=== PATIENT | female | born 1985 | race Caucasian/White ===

== ENCOUNTER 2017-06-07 07:25 | Inpatient (IN) | payer BC ==
[2017-06-07] MEDS ORDERED: Dinoprostone* 10 MG VAG.SUPP VAGINAL ONE ×2 (08:46→21:42)
[2017-06-07 12:00] LABS: Hematocrit 38 % (35-47); Hemoglobin 12.4 g/dl (12.0-16.0); Mean Corpuscular HGB Conc 32 g/dl (31-36); Mean Corpuscular Hemoglobin 27 pg (27-31); Mean Corpuscular Volume 82 fL (80-97); Mean Platelet Volume 10 um3 (7.4-10.4); Red Blood Count 4.65 10^6/ul (4.0-5.4); Red Cell Distribution Width 15 % (10.5-15)
[2017-06-07 12:16] LABS: Albumin 3.3 g/dL (3.2-5.2); BUN/Creatinine Ratio 20.5 (8-20); Calcium 9.1 mg/dL (8.6-10.3); EGFR African American 215.9 (>60); EGFR Non-African American 167.9 (>60); Globulin 3.5 g/dL (2-4); Potassium 3.8 mmol/L (3.5-5.0); Total Bilirubin 0.4 mg/dL (0.2-1.0); Total Protein 6.8 g/dL (6.4-8.9); Uric Acid 3.3 mg/dL (2.3-6.6)
--- NOTE | 2017-06-07 18:21 | PTEDU ---
Patient Name: REBECCA ACRTER REBECCA CARTER selected video: Never Ever Shake a Baby to view on 06/07/2017 at 6:20:48 PM from [facility] [id number]
[2017-06-07] MEDS ORDERED: Nalbuphine* 20 MG/ML 1 ML VIAL IV PRN (21:53)
[2017-06-07] MEDS ORDERED: Promethazine INJ(RESTRICTED)* 25 MG/ML 1 ML VIAL IV PRN (21:55)
[2017-06-08] MEDS ORDERED: Oxytocin in LR* 20 UNITS/1,000 ML BAG IVPB SCH (13:00)
[2017-06-08] MEDS: Misoprostol TAB* 100 MCG PO ONE (20:56)
[2017-06-09] MEDS ORDERED: hydrOXYzine HCL TAB* 50 MG PO ONE (01:05)
[2017-06-09] MEDS ORDERED: Misoprostol TAB* 100 MCG PO ONE (01:05)
[2017-06-09] MEDS ORDERED: Misoprostol TAB* 100 MCG ONE (01:10)
[2017-06-09] MEDS: Misoprostol TAB* 100 MCG PO ONE (01:24)
[2017-06-09 11:26] LABS: Hematocrit 41 % (35-47); Hemoglobin 13.2 g/dl (12.0-16.0); Mean Corpuscular HGB Conc 33 g/dl (31-36); Mean Corpuscular Hemoglobin 28 pg (27-31); Mean Corpuscular Volume 85 fL (80-97); Mean Platelet Volume 11 um3 (7.4-10.4); Red Blood Count 4.79 10^6/ul (4.0-5.4); Red Cell Distribution Width 15 % (10.5-15); White Blood Count 19.6 10^3/ul (3.5-10.8)
[2017-06-09] MEDS ORDERED: ceFOXitin 2 GM IVPREMIX* 2 GM/50 ML BAG IVPB ONE (16:37)
[2017-06-09] MEDS ORDERED: Dibucaine 1% 28.35 GM TUBE PR PRN (16:38)
[2017-06-09] MEDS ORDERED: oxyCODONE/Acetamin 5/325 MG* TAB PO PRN ×2 (16:38→19:08)
[2017-06-09] MEDS ORDERED: Witch Hazel PAD* JAR TOPICAL PRN (16:38)
[2017-06-09] MEDS ORDERED: RHO D Immune Globulin (HUMAN)* 300 MCG = 1,500 I.U. INJ IM ONE (16:44)
[2017-06-09] MEDS ORDERED: Sodium Citrate/Citric Acid* 15 ML UDC ONE (16:53)
[2017-06-09] MEDS ORDERED: Morphine PF AMP (0.5MG/ML)* 5 MG/10 ML AMP ONE (17:35)
[2017-06-09] MEDS ORDERED: OXYTOCIN* 10 UNITS/ML 1 ML VIAL ONE ×2 (17:52→18:17)
[2017-06-09] MEDS ORDERED: Ondansetron INJ* 2 MG/ML VIAL ONE (18:25)
[2017-06-09] MEDS ORDERED: Phenylephrine IV* 40 MCG/ML 10 ML SYRINGE ONE (18:25)
[2017-06-09] MEDS ORDERED: PROCHLORPERAZINE INJ 5 MG/ML 2 ML VIAL IV PRN (19:08)
[2017-06-09] MEDS ORDERED: Ondansetron INJ* 2 MG/ML VIAL IV PRN (19:08)
[2017-06-09] MEDS ORDERED: HYDROmorphone* 1 MG/ML 1 ML SYR IV PRN (19:08)
[2017-06-09] MEDS ORDERED: Naloxone* 0.4 MG/ML 1 ML VIAL IV PRN (19:08)
[2017-06-09] MEDS ORDERED: DiMENhydriNATE IV* 50 MG/ML VIAL IV PUSH PRN (19:08)
[2017-06-09] MEDS: Ketorolac INJ* 30 MG/ML 1 ML VIAL IV PRN (21:44)
[2017-06-09] MEDS: Ibuprofen TAB* 600 MG PO SCH ×2 (21:45→23:40)
[2017-06-09] MEDS: Simethicone CHEW TAB* 80 MG PO SCH (21:46)
[2017-06-09] MEDS: Docusate CAP* 100 MG PO SCH (21:46)
[2017-06-10] MEDS: Ketorolac INJ* 30 MG/ML 1 ML VIAL IV PRN ×3 (03:00→14:55)
[2017-06-10 08:36] LABS: Hematocrit 33 % (35-47); Mean Corpuscular HGB Conc 34 g/dl (31-36); Mean Corpuscular Hemoglobin 28 pg (27-31); Mean Corpuscular Volume 83 fL (80-97); Mean Platelet Volume 11 um3 (7.4-10.4); Red Blood Count 3.95 10^6/ul (4.0-5.4); Red Cell Distribution Width 15 % (10.5-15); White Blood Count 22.2 10^3/ul (3.5-10.8)
--- NOTE | 2017-06-10 08:40 | OP ---
DATE OF OPERATION: 06/09/17 - ROOM #[id number]-103 DATE OF : 89 SURGEON: Lukas Castle MD LINING BASTER: Farheen Mederos CNM ANESTHESIOLOGIST: Dr. Montgomery ANESTHESIA: Spinal. PRE-OP DIAGNOSIS: 39 plus 5 weeks' gestation with gestational hypertension and failure of induction. POST-OP DIAGNOSIS: 39 plus 5 weeks' gestation with gestational hypertension and failure of induction. OPERATIVE PROCEDURE: Primary low transverse section with vacuum assist. ESTIMATED BLOOD LOSS: 900 cc. URINE OUTPUT: 200 cc. IV FLUIDS: 1900 cc lactated Ringer's. MATERIALS TO LAB: Cord blood. INDICATIONS: This patient is a 32-year-old 1, para 0, who is admitted at 39 plus 3 weeks' gestation for induction of labor due to her history of gestational hypertension, possibly chronic hypertension. The patient did not have evidence of preeclampsia. Her cervix was not favorable on admission. She received two doses of intravaginal Cervidil. On hospital day 2, she received Pitocin for several hours without significant change and then received two doses of oral misoprostol. On hospital day 3, the patient had had minimal change in the last 24 hours. Artificial rupture of membranes was performed and Pitocin was restarted. Despite regular, uncomfortable uterine contractions for several hours, the patient did not progress progress past 2 cm dilatation and the head remained high in the pelvis. Considering this, we discussed the options and she desired to proceed with a primary section for failure of induction at that time. She was extensively counseled and consent was signed. FINDINGS: Lower abdomen and pelvis were very tight and narrow. Delivery of the head was quite challenging because of this. Delivery was productive of a male infant, weighing 8 pounds 4 ounces, and Apgars were 9 and 9. Time of delivery was 1815. COMPLICATIONS: None. DESCRIPTION OF PROCEDURE: The risks, benefits, and alternatives were described to the patient and informed consent was obtained. The patient was taken to the operating room with IV running where spinal anesthesia was induced and found to be adequate. The patient was prepped and draped in the normal sterile fashion in the dorsal supine position with leftward tilt. A Pfannenstiel skin incision was made with a scalpel and this was carried down to the underlying fascia sharply. The fascia was then scored in the midline with the scalpel. The incision was extended using Mejia scissors. The rectus muscles were dissected off the rectus fascia using blunt and sharp dissection. The rectus muscles were in the midline bluntly. The peritoneum was also entered bluntly. A bladder blade was placed. A bladder flap was created sharply using Metzenbaum scissors. A low transverse uterine incision was made with the scalpel. This was carried down to the amniotic cavity which was productive of clear fluid. The incision was extended with blunt traction. The head was elevated to the level of the incision without difficulty and delivered through the incision. With fundal pressure, the shoulders and body delivered without difficulty. The had an excellent tone and cried immediately on delivery. The cord was doubly clamped and cut. The was then handed to the awaiting combination saw operator. Cord blood was collected. The placenta then delivered with manual extraction. The uterus was then exteriorized and cleared of all clots and debris. Uterine incision was reapproximated using 0 Polysorb in a running-locked fashion. A second layer of imbricating sutures of 0 Polysorb was also placed with good hemostasis. The posterior cul-de-sac was irrigated with saline. The uterus was then returned to the abdomen, and the incision was reinspected and noted to be hemostatic. The peritoneum was closed with 2-0 chromic in a running fashion. The fascia was closed with 0 Polysorb in a running fashion. Subcutaneous tissues were reapproximated using 2-0 chromic and interrupted sutures. The skin was then closed with 4-0 Monocryl in a subcuticular stitch. Mastisol and Steri-Strips were placed over the incision which was then covered with a sterile bandage. The patient tolerated the procedure well. Sponge, lap, and needle counts were correct x2. [id number]/[facility] #: [id number] [facility]
[2017-06-10] MEDS ORDERED: Ferrous Gluconate TAB* 324 MG TAB PO SCH (09:00)
[2017-06-10] MEDS: Docusate CAP* 100 MG PO SCH ×3 (09:11→20:36)
[2017-06-10] MEDS: Simethicone CHEW TAB* 80 MG PO SCH ×4 (09:11→20:36)
[2017-06-10] MEDS: Ibuprofen TAB* 600 MG PO SCH ×3 (09:52→20:35)
[2017-06-11] MEDS: Ibuprofen TAB* 600 MG PO SCH (02:52)
[2017-06-11] MEDS: oxyCODONE/Acetamin 5/325 MG* TAB PO PRN ×2 (02:54→12:07)
[2017-06-11] MEDS: Docusate CAP* 100 MG PO SCH (08:43)
[2017-06-11] MEDS: Simethicone CHEW TAB* 80 MG PO SCH ×2 (08:44→12:06)
[2017-06-11] MEDS ORDERED: Ibuprofen TAB* 600 MG PO SCH (09:00)
[2017-06-11 10:07] VITALS: BP 140/72
== END 2017-06-11 12:20 | disposition home or self-care (01) | DRG 540 ==
LOC: MCHOBOUT 07:25 → MCHOB 09:17
PROVIDERS: ADMIT Obstetrics & Gynecology; ATTEND Obstetrics & Gynecology
PROC: 3E033VJ Introduction of Other Hormone into Peripheral Vein, Percutaneous Approach (ICD-10-PCS; 2017-06-09)
PROC: 10907ZC Drainage of Amniotic Fluid, Therapeutic from Products of Conception, Via Natural or Artificial Opening (ICD-10-PCS; 2017-06-09)
PROC: 10D00Z1 Extraction of Products of Conception, Low, Open Approach (ICD-10-PCS; principal; 2017-06-09 17:39)
DX: O62.0 Primary inadequate contractions (principal); Z37.0 Single live birth; O13.4 Gestational [pregnancy-induced] hypertension without significant proteinuria, complicating childbirth; Z3A.39 39 weeks gestation of pregnancy
CPT/HCPCS: 36415; 59200; 80053; 84550; 85025; 85461; 86850; 86900; 86901; A9270-GY; J0694; J1885; J2300; J2405; J2550; J2590; J2790; S0191

== ENCOUNTER 2021-03-05 06:03 | Inpatient (IN) ==
[~2021-03-05 06:03] MED LIST: Buffered Lidocaine 1% SYRIN 1 ml INTRADERM ONE; Lactated Ringers 1000 ml BAG 1,000 ML IV SCH; Sodium Citrate/Citric Acid LIQ 15 ML UDC PO ONE
[2021-03-05] MEDS ORDERED: ceFOXitin 2 GM PREMIX 50 ML IVPB ONE (06:08)
[2021-03-05] MEDS ORDERED: Buffered Lidocaine 1% SYRIN 1 ml INTRADERM ONE (07:18)
[2021-03-05] MEDS ORDERED: Lactated Ringers 1000 ml BAG 1,000 ML IV ONE (07:18)
[2021-03-05] MEDS ORDERED: Morphine PF AMP (0.5MG/ML) 5 MG/10 ML AMP ONE (07:41)
[2021-03-05] MEDS ORDERED: Phenylephrine 40 mcg/mL 10mL (400mcg) SYRINGE ONE (07:42)
[2021-03-05] MEDS ORDERED: Naloxone 0.4 mg VIAL 0.4 mg/ml 1 ml VIAL IV PRN ×2 (07:43→07:44)
[2021-03-05] MEDS ORDERED: diPHENhydraMINE IV 50 MG/ML 1 ml VIAL (BENADRYL) IV PRN (07:44)
[2021-03-05] MEDS ORDERED: oxyCODONE/Acetamin 5/325 mg TAB PO PRN ×2 (07:44→07:46)
[2021-03-05] MEDS ORDERED: Ondansetron 4 mg VIAL 2 MG/ML 2 ml VIAL IV PRN (07:44)
[2021-03-05] MEDS ORDERED: Lactated Ringers 1000 ml BAG 1,000 ML IV SCH ×2 (08:00→10:00)
[2021-03-05] MEDS ORDERED: Ondansetron 4 mg VIAL 2 MG/ML 2 ml VIAL ONE (08:12)
[2021-03-05] MEDS ORDERED: Oxytocin 10 UNITS/ML 1 ML VIAL ONE (08:12)
[2021-03-05] MEDS ORDERED: Glycerin ADULT 2.4 gm SUPP PR PRN (09:30)
[2021-03-05] MEDS ORDERED: RHO D Immune Globulin (HUMAN) 300 MCG = 1,500 I.U. INJ IM PRN (09:30)
[2021-03-05] MEDS ORDERED: Witch Hazel PAD JAR TOPICAL PRN (09:30)
[2021-03-05] MEDS ORDERED: Dibucaine 1% OINT 28.35 GM TUBE PR PRN (09:30)
[2021-03-05 09:58] LABS: Urine Benzodiazepine Screen None Detected (None Detect); Urine Cannabinoids Screen None Detected (None Detect); Urine Opiates Screen None Detected (None Detect)
[2021-03-05] MEDS ORDERED: Oxytocin in LR 20 UNITS/1,000 ML BAG IVPB SCH (10:00)
[2021-03-05] MEDS ORDERED: Measles, Mumps,Rubella VACC 0.5 ML/VIAL SUBCUT ONE (10:34)
[2021-03-06 08:17] LABS: Urine Appearance Clear; Urine Bilirubin Negative (Negative); Urine Blood Negative (Negative); Urine Color Yellow; Urine Glucose Negative (Negative); Urine Ketones Negative (Negative); Urine Nitrite Negative (Negative); Urine Protein Negative (Negative); Urine Urobilinogen Negative (Negative)
[2021-03-06 09:56] LABS: ABS Eosinophils 0.1 10^3/ul (0-0.6); ABS Lymphocytes 1.3 10^3/ul (1.0-4.8); ABS Monocytes 0.8 10^3/ul (0-0.8); ABS Neutrophils 16.1 10^3/ul (1.5-7.7); Eosinophil % 0.5 %; Hematocrit 31 % (35-47); Hemoglobin 10.6 g/dL (12.0-16.0); Lymphocyte % 6.9 %; Mean Corpuscular HGB Conc 34 g/dL (31-36); Mean Corpuscular Hemoglobin 29 pg (27-31); Mean Corpuscular Volume 84 fL (80-97); Mean Platelet Volume 9.8 fL (7.4-10.4); Platelet Count 174 10^3/uL (150-450); Red Blood Count 3.71 10^6 /uL (3.70-4.87); Red Cell Distribution Width 14 % (10-15); White Blood Count 18.2 10^3/uL (3.5-10.8)
[2021-03-06] MEDS ORDERED: Measles, Mumps,Rubella VACC 0.5 ML/VIAL ONE (12:38)
[2021-03-07 07:56] VITALS: BP 124/80
== END 2021-03-07 09:55 | disposition home or self-care (01) | DRG 540 ==
LOC: MCHOB 06:03
PROVIDERS: ADMIT Obstetrics & Gynecology; ATTEND Obstetrics & Gynecology

== ENCOUNTER 2024-10-12 06:43 | Inpatient (IN) ==
[2024-10-12] MEDS: Lactated Ringers SEPSIS* BAG 1,640 ML IV ONE (07:00)
[2024-10-12] MEDS: Ondansetron 4 mg VIAL 2 MG/ML 2 ml VIAL IV ONE (07:31)
[2024-10-12 07:34] LABS: Hematocrit 36.4 % (35-45); Hemoglobin 12.3 g/dL (11.5-14.3); Mean Corpuscular Hemoglobin 30.5 pg (27-33); Mean Corpuscular Hgb Conc 33.7 g/dL (31-36); Mean Corpuscular Volume 90.5 fL (80-97); Mean Platelet Volume 8.5 fL (7.5-11.2); Platelet Count 221 10^3/uL (150-450); Red Blood Count 4.02 10^6/uL (3.63-4.92); Red Cell Distribution Width 16.4 % (12-17); White Blood Count 20.6 10^3/uL (3.8-11.8)
[2024-10-12 07:47] LABS: Activated Partial Thrombo Time 29.9 seconds (26.0-38.0); INR 1.26 (0.85-1.14)
[2024-10-12 08:06] LABS: Albumin 4.1 g/dL (3.5-5.7); Albumin/Globulin Ratio 2.4 (1-3); C Reactive Protein 38.02 mg/L (<8.01); Calcium 8.6 mg/dL (8.6-10.3); Creatinine, Serum 0.76 mg/dL (0.51-0.95); Globulin 1.7 g/dL (2-4); Potassium 3.7 mmol/L (3.5-5.0); Total Bilirubin 0.3 mg/dL (0.2-1.0); Total Protein 5.8 g/dL (6.4-8.9); eGFR CKD-EPI 103.4 (>60)
[2024-10-12 08:52] LABS: Urine Appearance Clear; Urine Bilirubin Negative (Negative); Urine Blood Trace (Negative); Urine Color Yellow; Urine Glucose Negative (Negative); Urine Ketones Negative (Negative); Urine Nitrite Negative (Negative); Urine Protein 1+ (>=30 mg/dL) (Negative); Urine Specific Gravity 1.028 (1.002-1.030); Urine Urobilinogen Negative (Negative); Urine pH 6.5 (5.0-8.0)
[2024-10-12 09:07] LABS: Urine Bacteria Absent /HPF (Absent); Urine Red Blood Cell 1+(3-5/hpf) /HPF (0-Trace); Urine Squamous Epithelial Cell Present /HPF (Absent); Urine White Blood Cell 2+(11-20/hpf) /HPF (0-Trace)
[2024-10-12 09:12] LABS: ABS Eosinophils 0.1 10^3/uL (0.0-0.5); ABS Monocytes 1.9 10^3/uL (0.0-0.9); ABS Neutrophils 17.6 10^3/uL (1.5-7.6); ABS Nucleated RBC 0.05 10^3/ul; Eosinophil % 0.4 %; Lymphocyte % 5.1 %; Nucleated Red Blood Cells % 0.2 %/100WBC (0.0-0.8); Polychromasia 1+
[2024-10-12] MEDS: cefTRIAXone 1 gm/50 mL D5W 1 GM/50 ML BAG IV ONE (10:43)
[2024-10-12] MEDS: Azithromycin 500 mg/250 ml NS 500 MG/250 ML BAG IVPB ONE (11:35)
[2024-10-12] MEDS: NS 0.9% 1000 ml BAG 1,000 ML IV SCH (13:31)
[2024-10-12] MEDS: Enoxaparin 40 MG/0.4 ML SYR SUBCUT SCH (20:30)
[2024-10-13] MEDS: Diphenoxylat/Atrop 2.5-0.025mg TAB PO ONE ×2 (03:41→19:31)
[2024-10-13 07:16] LABS: Hematocrit 31.9 % (35-45); Hemoglobin 10.9 g/dL (11.5-14.3); Mean Corpuscular Hemoglobin 30.8 pg (27-33); Mean Corpuscular Hgb Conc 34.3 g/dL (31-36); Mean Corpuscular Volume 89.9 fL (80-97); Mean Platelet Volume 8.2 fL (7.5-11.2); Platelet Count 163 10^3/uL (150-450); Red Blood Count 3.55 10^6/uL (3.63-4.92); Red Cell Distribution Width 16.6 % (12-17); White Blood Count 17.9 10^3/uL (3.8-11.8)
[2024-10-13 07:51] LABS: ABS Eosinophils 0.1 10^3/uL (0.0-0.5); ABS Lymphocytes 1.3 10^3/uL (1.0-4.8); ABS Monocytes 1.2 10^3/uL (0.0-0.9); ABS Neutrophils 15.3 10^3/uL (1.5-7.6); ABS Nucleated RBC 0.01 10^3/ul; Eosinophil % 0.6 %; Nucleated Red Blood Cells % 0.1 %/100WBC (0.0-0.8); RBC Morphology Normal (Normal); Toxic Granulation 1+
[2024-10-13 08:08] LABS: Albumin 3.6 g/dL (3.5-5.7); Albumin/Globulin Ratio 2.3 (1-3); Calcium 8.2 mg/dL (8.6-10.3); Creatinine, Serum 0.61 mg/dL (0.51-0.95); Globulin 1.6 g/dL (2-4); Magnesium 1.5 mg/dL (1.9-2.7); Potassium 3.3 mmol/L (3.5-5.0); Total Bilirubin 0.3 mg/dL (0.2-1.0); Total Protein 5.2 g/dL (6.4-8.9)
[2024-10-13 08:23] LABS: TSH Ultra Thyroid Stim Horm 1.1 mcIU/mL (0.34-5.60)
[2024-10-13] MEDS: cefTRIAXone 1 gm/50 mL D5W 1 GM/50 ML BAG IV SCH (10:35)
[2024-10-13] MEDS: Azithromycin 500 mg/250 ml NS 500 MG/250 ML BAG IVPB SCH (12:38)
[2024-10-13] MEDS: KCL 20 MEQ/100 ML IVPREMIX 20 MEQ/100 ML BAG IV SCH (14:02)
[2024-10-13] MEDS: Ondansetron 4 mg VIAL 2 MG/ML 2 ml VIAL IV PRN (14:03)
[2024-10-13] MEDS: Magnesium Sulfate 2 gm BAG 2 GM/50 ML BAG IVPB ONE (19:46)
[2024-10-13] MEDS: Albuterol HFA INHALER 8 gm MDI INH PRN (20:01)
[2024-10-14 05:06] LABS: Hematocrit 30.4 % (35-45); Hemoglobin 10.5 g/dL (11.5-14.3); Mean Corpuscular Hemoglobin 31.1 pg (27-33); Mean Corpuscular Hgb Conc 34.7 g/dL (31-36); Mean Corpuscular Volume 89.6 fL (80-97); Mean Platelet Volume 8.5 fL (7.5-11.2); Platelet Count 145 10^3/uL (150-450); Red Blood Count 3.39 10^6/uL (3.63-4.92); Red Cell Distribution Width 16.5 % (12-17); White Blood Count 13.6 10^3/uL (3.8-11.8)
[2024-10-14 05:31] LABS: Calcium 7.9 mg/dL (8.6-10.3); Creatinine, Serum 0.53 mg/dL (0.51-0.95); Magnesium 1.6 mg/dL (1.9-2.7); Potassium 3.5 mmol/L (3.5-5.0); eGFR CKD-EPI 122.1 (>60)
[2024-10-14 06:23] LABS: ABS Eosinophils 0.1 10^3/uL (0.0-0.5); ABS Lymphocytes 0.8 10^3/uL (1.0-4.8); ABS Monocytes 0.9 10^3/uL (0.0-0.9); ABS Neutrophils 11.6 10^3/uL (1.5-7.6); ABS Nucleated RBC 0.01 10^3/ul; Eosinophil % 0.8 %; Lymphocyte % 6.2 %; Nucleated Red Blood Cells % 0.1 %/100WBC (0.0-0.8)
[2024-10-14 06:24] LABS: Polychromasia 1+
[2024-10-14] MEDS ORDERED: Benzocaine (plain) Lozenge 15 MG MT PRN (08:51)
[2024-10-14] MEDS: Diphenoxylat/Atrop 2.5-0.025mg TAB PO PRN (09:14)
[2024-10-14] MEDS: Benzocaine/Menthol LOZ MT PRN (09:15)
[2024-10-14 14:53] VITALS: BP 119/77
== END 2024-10-14 17:01 | disposition home or self-care (01) | DRG 139 ==
LOC: EDHOLD 06:43 → ED 06:43 → SUATTDRO 11:28 → MEDTELE 15:54
PROVIDERS: ADMIT Hospitalist; ATTEND Internal Medicine